=== PATIENT | female | born 1960 | race Caucasian/White ===

== ENCOUNTER 2016-07-27 08:02 | Emergency (ER) | payer OTHER, MEDICARE ==
[~2016-07-27] VITALS: Ht 157.5 cm; Wt 52.2 kg
[~2016-07-27 08:02] MED LIST: AUGMENTIN 875 M1 TAB PO; BACTRIM DS 8001 TAB PO; BENTYL10 MG PO; BENTYL20 MG PO; CARAFATE1 GM/10 ML PO; CIPRO 500MG TA500 MG PO; CLONAZEPAM0.5 MG PO; CLONAZEPAM1 MG PO; CLONAZEPAM2 MG PO; CYCLOBENZAPRINE10 MG PO; DICLOFENAC SODI75 M2 PO; FLUOXETINE HCL20 M2 PO; FOLIC ACID 1 MG PO; LEVOTHYROXIN0.088 M1 PO; LEVOTHYROXIN0.125 MG PO; LEVOTHYROXINE0.1 MG PO; NAPROSYN500 M1 PO; NITROFURANTOIN50 MG PO; NORCO 325 MG-51 TAB PO; NORCO 325 MG-7.1 TAB PO; OMEPRAZOLE40 MG PO; PERCOCET 325 MG1 TA2 PO; QUETIAPINE FUM200 MG PO; QUETIAPINE FUM300 MG PO; QUETIAPINE FUM400 MG PO; SIMVASTATIN20 MG PO; VICODIN ES 7.51 EACH PO; ZOFRAN4 M1 PO; ZOFRAN4 M1 SL; ZOLPIDEM TART10 MG PO
--- NOTE | 2016-07-27 08:40 | ED GI/GU/ABDOMINAL COMPLAINT ---
History of Present Illness General Chief Complaint: General Adult Stated Complaint: MULTI COMPLAINTS Source: patient, old records Exam Limitations: no limitations Vital Signs & Intake/Output Vital Signs & Intake/Output Vital Signs Date Time Temp Pulse Resp B/P Pulse O2 O2 Flow FiO2 Ox Delivery Rate 07/27 1030 97.5 84 18 120/80 97 Room Air Room Air 07/27 0816 97.7 95 20 121/79 98 Room Air Room Air Allergies Coded Allergies: No Known Allergies (08/17/15) Reconcile Medications Ciprofloxacin HCl (Cipro) 500 MG TABLET 1 TAB PO BID UTI Clonazepam 2 MG TABLET 2 TAB PO QPM SLEEP (Reported) Clonazepam 1 MG TABLET 1 TAB PO DAILY PRN ANXIETY (Reported) CYCLOBENZAPRINE HCL (Cyclobenzaprine HCl) 10 MG TAB 1 TAB PO BID MUSCLE SPASMS (Reported) Diclofenac Sodium 75 MG TABLET.DR 1 TAB PO BID PRN PAIN Fluoxetine HCl 20 MG CAPSULE 3 CAP PO DAILY MENTAL HEALTH (Reported) Folic Acid 1 MG TABLET 1 TAB PO DAILY FOLIC ACID SUPPLEMENT (Reported) Hydrocodone/Acetaminophen (Vicodin Es 7.5-300 MG Tablet) 7.5 MG-300 MG TABLET 1 TAB PO TID PAIN (Reported) Ibuprofen 600 MG TABLET 1 TAB PO TID PRN PAIN with food Levothyroxine Sodium 0.125 MG TAB 1 TAB PO DAILY AC THYROID (Reported) Omeprazole 40 MG CAPSULE.DR 1 CAP PO DAILY ULCER (Reported) Quetiapine Fumarate 300 MG TAB 2 TAB PO QHS DEPRESSION (Reported) Simvastatin (Zocor) 20 MG TAB 1 TAB PO QPM CHOLESTEROL (Reported) Zolpidem Tartrate 10 MG TABLET 2 TAB PO QPM SLEEP (Reported) Triage Note: PT TO ED WITH MULTIPLE COMPLAINTS, ABD PAIN "I HAVE PANCREATITIS, I'M SUPPOSED TO BE ON CREON, NOT TAKING IT YET". "I THINK I HAVE A UTI". "NOT TAKING IN FLUIDS WELL". Triage Nurses Notes Reviewed? yes ? N Is pt currently ? No Onset: Gradual Duration: constant Timing: recent history Quality/Severity: moderate Severity Numbers: 5 Location: generalized abdomen Radiation: no radiation Activities at Onset: none HPI: Patient is a 55-year-old female with a past medical history of COPD, former smoker, hypothyroidism, chronic back pain/arthritis, depression/anxiety, splenic aneurysm, celiac disease, status post laparoscopic appendectomy (ruptured) in 2014, and a long-standing history of "stomach" issues who presents emergency room with a chronic history of intermittent waxing and waning abdominal discomfort in the last week symptoms have worsened localized pain to the epigastric region with radiation to her back. Patient states that she has chronic pancreatitis with unknown etiology. Patient also states that she has a urethral stenosis where she gets chronic UTIs and complains of dysuria and frequency urine changes. Patient is able tolerate by mouth however decreased by mouth intake. Patient states that she was advised by her business services tech to begin Creon however patient is noncompliant with this medication. Denies any fevers but does have chills. Denies any chest pain are pain jaw pain vaginal bleeding or discharge. Last bowel movement was within last 24 hours no blood no melena noted. (SANDRINE VALENTE) Past History Travel History Traveled to [place] past 21 day No Medical History Any Pertinent Medical History? 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 FH: heart disease MOTHER FH: heart disease FATHER FH: heart disease DAUGHTER FH: arrhythmia Hx Contributory? No (SANDRINE VALENTE) Review of Systems Review of Systems Constitutional: Reports: see HPI. EENTM: Reports: no symptoms. Respiratory: Reports: no symptoms. Cardiovascular: Reports: no symptoms. GI: Reports: see HPI, abdominal pain. Genitourinary: Reports: see HPI. Musculoskeletal: Reports: no symptoms. Skin: Reports: no symptoms. Neurological/Psychological: Reports: no symptoms. Hematologic/Endocrine: Reports: no symptoms. Immunologic/Allergic: Reports: no symptoms. All Other Systems: Reviewed and Negative (SANDRINE VALENTE) Physical Exam Physical Exam General Appearance: no apparent distress, alert, comfortable Gastrointestinal: normal bowel sounds, soft, MILD EPIGASTRIC POINT TENDERNESS NOTED, NO RIGHT LOWER QUADRANT PAIN NO REBOUND TENDERNESS NO RIGHT UPPER QUADRANT PAIN NO PERITONEAL SIGNS Comments: Well-developed well-nourished person in no acute distress HEENT: Normal EENT exam Neck: Supple, no lymphadenopathy, normal range of motion without pain or tenderness Back: Nontender, no CVA tenderness. Cardiovascular: Regular rate and rhythms no murmurs rubs or gallops, normal JVP Respiratory: Chest nontender. No respiratory distress.breath sounds clear to auscultation bilaterally Extremity: No edema, no calf tenderness to palpation, normal and equal pulses. Neuro: Alert oriented x3, motor sensory normal, Skin: No appreciable rash on exposed skin, skin is warm and dry. Psych: Mood and affect is normal, memory and judgment is normal. Core Measures ACS in differential dx? No Severe Sepsis Present: No Septic Shock Present: No (SANDRINE VALENTE) Progress Differential Diagnosis: AAA, AMI, biliary colic, bowel obstruction, colon cancer , cholecystitis, diverticulitis, ectopic , endometritis, esophageal varices, gastritis, hepatitis, hernia, hemorrhoids, ischemic bowel, inflamm bowel dis, intrauterine , kidney stone, Stefania-Allen tear, ovarian cyst , ovarian torsion, pancreatitis, PID/cervicitis, peptic ulcer, PUD/GERD, perforated viscous, SBO, threatened AB, UTI/pyelo Plan of Care: Orders Procedure Date/time Status Add-on Test (ER Only) 07/27 1015 Active LIPASE 07/27 0831 Complete COMPREHENSIVE METABOLIC PANEL 07/27 0831 Complete CBC WITHOUT DIFFERENTIAL 07/27 0831 Complete AMYLASE 07/27 0831 Complete CULTURE,URINE 07/27 0818 Active URINALYSIS 07/27 0818 Complete Laboratory Tests 07/27/16 0948: Urine Color YEL, Urine Clarity HAZY H, Urine pH 7.0, Ur Specific Girard 1.020, Urine Protein NEG, Urine Ketones NEG, Urine Nitrite POS H, Urine Bilirubin NEG, Urine Urobilinogen 0.2, Ur Leukocyte Esterase SMALL H, Ur Microscopic SEDIMENT EXAMINED, Urine RBC 1-3, Urine WBC 25-50 H, Hyaline Casts 5-10 H, Urine Mucus FEW, Urine Hemoglobin NEG, Urine Glucose NEG 07/27/16 0902: Anion Gap 12, Estimated GFR > 60, BUN/Creatinine Ratio 20.0, Glucose 84, Calcium 8.4, Total Bilirubin 0.3, AST 39 H, ALT 40, Alkaline Phosphatase 125, Total Protein 5.4 L, Albumin 2.9 L, Globulin 2.5, Albumin/Globulin Ratio 1.2, Amylase 44, Lipase 245, CBC w Diff NO MAN DIFF REQ, RBC 3.32 L, MCV 97.9, MCH 32.7 H, RDW 13.5, MPV 7.4, Gran % 64.8, Lymphocytes % 21.9, Monocytes % 10.2 H , Eosinophils % 2.3, Basophils % 0.8, Absolute Granulocytes 3.4, Absolute Lymphocytes 1.1 L, Absolute Monocytes 0.5, Absolute Eosinophils 0.1, Absolute Basophils 0, PUBS MCHC 33.4 Microbiology 07/27 0818 URINE ROUT: Urine Culture - RECD Patient currently is in no apparent distress and actively drinking water Patient had unremarkable blood work and urinalysis noted UTI culture currently is pending patient will be placed with ciprofloxacin. Patient was strongly advised to follow up as directed and discharge instructions that she will comply. (SANDRINE VALENTE) Initial ED EKG: none (SANDRINE VALNETE) Departure Departure Disposition: HOME OR SELF CARE Condition: Stable Clinical Impression Primary Impression: UTI (urinary tract infection) Secondary Impressions: Abdominal pain Referrals: Mukul CARBONE MD (PCP/Family) Additional Instructions: As discussed begin a 24-hour clear liquid and bland diet to rest her bowels and begin drinking plenty of water for hydration. Begin the prescription Motrin for pain and a prescription of ciprofloxacin as directed for the full course. If symptoms worsen return to emergency room. Follow-up with your primary care doctor in 7 days for recheck of urinalysis and follow-up with a business services tech in 3 days if no better. Begin taking her home medications prescribed to as directed. Prescription is waiting at [facility] pharmacy Departure Forms: Customer Survey General Discharge Information Prescriptions: Current Visit Scripts Ciprofloxacin HCl (Cipro) 1 TAB PO BID #20 TAB Ibuprofen 1 TAB PO TID PRN PAIN #20 TAB with food (SANDRINE VALENTE) PA/ASSISTANT Co-Sign Statement Statement: ED Attending supervision documentation- [] I saw and evaluated the patient. I have also reviewed all the pertinent lab results and diagnostic results. I agree with the findings and the plan of care as documented in the PA's/ASSISTANT's documentation. [x] I have reviewed the ED Record and agree with the PA's/ASSISTANT's documentation. [] Additions or exceptions (if any) to the PAs/ASSISTANT's note and plan are summarized below: [] (MONIQUE GENAO DO
[2016-07-27 09:10] LABS: ABSOLUTE BASOPHIL COUNT 0 /CUMM (0.0-0.2); ABSOLUTE EOSINOPHIL COUNT 0.1 /CUMM (0.0-0.7); ABSOLUTE GRANULOCYTE CT 3.4 /CUMM (1.4-6.5); ABSOLUTE LYMPH COUNT 1.1 /CUMM (1.2-3.4); ABSOLUTE MONOCYTE COUNT 0.5 /CUMM (0.10-0.60); BASOPHIL % 0.8 % (0.0-2.0); EOSINOPHIL % 2.3 % (0-5); GRANULOCYTE % 64.8 % (42.2-75.2); HEMATOCRIT 32.5 % (37-47); MEAN CORPUSCULAR HGB 32.7 PG (27.0-31.0); MEAN CORPUSCULAR HGB CONC 33.4 G/DL (33.0-37.0); MEAN CORPUSCULAR VOLUME 97.9 FL (81.0-99.0); MEAN PLATELET VOLUME 7.4 FL (7.4-10.4); PLATELET COUNT 290 /CUMM (130-400); RBC DISTRIBUTION WIDTH 13.5 % (11.5-14.5); RED BLOOD CELL CT 3.32 /CUMM (4.20-5.40); WHITE BLOOD CELL COUNT 5.2 /CUMM (4.8-10.8)
[2016-07-27] MEDS ORDERED: CIPRO500 M1 PO (10:19)
[2016-07-27] MEDS ORDERED: IBUPROFEN600 M1 PO (10:19)
[2016-07-27 10:30] VITALS: BP 120/80
== END 2016-07-27 10:32 ==
LOC: ERH 08:02
PROVIDERS: Physician Assistant
DX: N39.0 Urinary tract infection, site not specified (principal)
CPT/HCPCS: 81001; 87086; 87147

== ENCOUNTER 2016-09-02 17:20 | Emergency (ER) | payer OTHER, MEDICARE ==
[~2016-09-02] VITALS: Ht 157.5 cm; Wt 53.5 kg
[~2016-09-02 17:20] MED LIST changes: +CIPRO500 M1 PO; +IBUPROFEN600 M1 PO
[2016-09-02 17:30] VITALS: BP 114/67
[2016-09-02] MEDS ORDERED: DELTASONE20 MG PO (19:00)
[2016-09-02] MEDS ORDERED: BROMFED DM COU118 M1 PO (19:00)
[2016-09-02] MEDS ORDERED: PROVENTIL HFA6.7 GM INH (19:00)
[2016-09-02] MEDS ORDERED: DOXYCYCLINE HY100 M4 PO (19:00)
--- NOTE | 2016-09-02 19:01 | ED DYSPNEA/ASTHMA COMPLAINT ---
History of Present Illness General Chief Complaint: General Adult Stated Complaint: PT HAVING WATERS,COUGHING ,CHEST PAIN ,STUFFY NOSE Source: patient Exam Limitations: no limitations Vital Signs & Intake/Output Vital Signs & Intake/Output Vital Signs Date Time Temp Pulse Resp B/P Pulse O2 O2 Flow FiO2 Ox Delivery Rate 09/02 1730 97.4 100 16 114/67 95 Room Air Allergies Coded Allergies: No Known Allergies (08/17/15) Reconcile Medications Albuterol Sulfate (Proventil Hfa) 90 MCG HFA.AER.AD 2 PUF INH Q4 SOB Brompheniramine/Pseudoephed/Dm (Bromfed Dm Cough Syrup) 2 MG-30 MG-10 MG/5 ML SYRUP 5-10 ML PO Q4-6 PRN PRN COUGH Ciprofloxacin HCl (Cipro) 500 MG TABLET 1 TAB PO BID UTI Clonazepam 2 MG TABLET 2 TAB PO QPM SLEEP (Reported) Clonazepam 1 MG TABLET 1 TAB PO DAILY PRN ANXIETY (Reported) CYCLOBENZAPRINE HCL (Cyclobenzaprine HCl) 10 MG TAB 1 TAB PO BID MUSCLE SPASMS (Reported) Diclofenac Sodium 75 MG TABLET.DR 1 TAB PO BID PRN PAIN Doxycycline Hyclate 100 MG TABLET 1 TAB PO AD BRONCHITIS 2 TABS BID DAYS 1-3 1 TAB BID DAYS 4-6 Fluoxetine HCl 20 MG CAPSULE 3 CAP PO DAILY MENTAL HEALTH (Reported) Folic Acid 1 MG TABLET 1 TAB PO DAILY FOLIC ACID SUPPLEMENT (Reported) Hydrocodone/Acetaminophen (Vicodin Es 7.5-300 MG Tablet) 7.5 MG-300 MG TABLET 1 TAB PO TID PAIN (Reported) Ibuprofen 600 MG TABLET 1 TAB PO TID PRN PAIN with food Levothyroxine Sodium 0.125 MG TAB 1 TAB PO DAILY AC THYROID (Reported) Omeprazole 40 MG CAPSULE.DR 1 CAP PO DAILY ULCER (Reported) Prednisone (Deltasone) 20 MG TABLET 1 TAB PO BID BRONCHITIS Quetiapine Fumarate 300 MG TAB 2 TAB PO QHS DEPRESSION (Reported) Simvastatin (Zocor) 20 MG TAB 1 TAB PO QPM CHOLESTEROL (Reported) Zolpidem Tartrate 10 MG TABLET 2 TAB PO QPM SLEEP (Reported) Triage Note: PT STATES SHE IS FEELING CONGESTED PAIN IN HER LUNGS AND LOOSING HER VOICE. PT STATES SHE IS FEELING LIGHTHEADED AND SHE HAS BEEN RUNNING A FEVER ON AND OFF. Triage Nurses Notes Reviewed? yes Onset: Abrupt Duration: day(s):, constant Timing: recent history HPI: 56-year-old female comes into emergency room with runny nose, cough, congestion, mucus production, shortness of breath, fever chills body aches. Symptoms going on for the past few days. Denies any chest pain. History of COPD. Nothing seems to make the symptoms better. Patient has not tried any [id number] medications. Denies any other associated symptoms at this time. (JOSH PÉREZ) Past History Travel History Traveled to [place] past 21 day No Medical History Any Pertinent Medical History? 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 FH: heart disease MOTHER FH: heart disease FATHER FH: heart disease DAUGHTER FH: arrhythmia Hx Contributory? No (JOSH PÉREZ) Review of Systems Review of Systems Constitutional: Reports: see HPI. EENTM: Reports: see HPI. Respiratory: Reports: see HPI. Cardiovascular: Reports: no symptoms. GI: Reports: no symptoms. Genitourinary: Reports: no symptoms. Musculoskeletal: Reports: no symptoms. Skin: Reports: no symptoms. Neurological/Psychological: Reports: no symptoms. Hematologic/Endocrine: Reports: no symptoms. Immunologic/Allergic: Reports: no symptoms. All Other Systems: Reviewed and Negative (JOSH PÉREZ) Physical Exam Physical Exam General Appearance: well developed/nourished, no apparent distress, alert, awake Head: atraumatic, normal appearance Eyes: Bilateral: normal appearance, EOMI. Ears, Nose, Throat: normal pharynx, normal ENT inspection, hearing grossly normal, sinus pain/drainage, nasal congestion Neck: normal inspection, full range of motion Respiratory: no respiratory distress, wheezing (mild) Cardiovascular: regular rate/rhythm Extremities: normal inspection, normal range of motion Neurologic/Psych: awake, alert, oriented x 3, normal gait, normal mood/affect Skin: intact, normal color Core Measures ACS in differential dx? No Severe Sepsis Present: No Septic Shock Present: No (JOSH PÉREZ) Progress Differential Diagnosis: asthma, AMI, bronchitis, costochondritis, CHF, COPD, musculoskeletal pain, pericarditis, pulmonary embolism, pneumonia, pneumothorax, rib fracture, unstable angina Plan of Care: 09/02/2016 8:31:12 PM Symptoms are most consistent with bronchitis. Patient declined chest x-ray and further evaluation with blood work and possibly EKG. At this time patient be treated symptomatically as outpatient with oral medications. Follow-up with primary care doctor. Return if any other concerns worsening symptoms. Symptoms go along with viral illness anyways and therefore I do not feel that a full workup is needed at this time. Patient just wants to go home and be started on oral meds. Initial ED EKG: none (JOSH PÉREZ) Departure Departure Disposition: HOME OR SELF CARE Condition: Stable Clinical Impression Primary Impression: Bronchitis Referrals: Mukul CARBONE MD (PCP/Family) Additional Instructions: Take doxycycline, prednisone, albuterol, and Bromfed as prescribed. Follow-up with your primary care doctor. Return if any concerns worsening symptoms. Please go over all results of today's visit with your primary care doctor. Contact your primary care doctor to let them know you were here in the emergency room. There may be nonspecific findings which may not be related to your visit today here in the emergency room but may require further evaluation and chronic monitoring by your primary care doctor. If you had a laceration today the chance of foreign body always remains. You should follow-up with your primary care doctor for recheck in 3-5 days for a wound check. If you had an x-ray done there is a chance that a fracture could have been missed on initial read and you should follow-up with your primary care doctor for repeat x-rays if symptoms persist. If your blood pressure was elevated here in the emergency room please have rechecked by her primary care doctor within the next 48 hours by your primary care doctor. If you were prescribed a narcotic here in the emergency room or any type of controlled substances you're not allowed to drive while taking this medication or operate any type of heavy machinery. Narcotics can make you feel lightheaded dizziness nausea and can cause constipation. 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 Thank you for choosing [facility] emergency room. Please return to the emergency room immediately if you have any other concerns worsening of symptoms. Departure Forms: Customer Survey General Discharge Information Prescriptions: Current Visit Scripts Doxycycline Hyclate 1 TAB PO AD #18 TAB 2 TABS BID DAYS 1-3 1 TAB BID DAYS 4-6 Prednisone (Deltasone) 1 TAB PO BID #10 MG Albuterol Sulfate (Proventil Hfa) 2 PUF INH Q4 #1 INHAL Brompheniramine/Pseudoephed/Dm (Bromfed Dm Cough Syrup) 5-10 ML PO Q4-6 PRN PRN COUGH #120 ML (JOSH PÉREZ) PA/EMERGENCY DEPARTMENT NURSE Co-Sign Statement Statement: ED Attending supervision documentation- [] I saw and evaluated the patient. I have also reviewed all the pertinent lab results and diagnostic results. I agree with the findings and the plan of care as documented in the PA's/EMERGENCY DEPARTMENT NURSE's documentation. [x I have reviewed the ED Record and agree with the PA's/EMERGENCY DEPARTMENT NURSE's documentation. [] Additions or exceptions (if any) to the PAs/EMERGENCY DEPARTMENT NURSE's note and plan are summarized below: [] (MONIQUE GENAO DO) Critical Care Note Critical Care Note Critical Care Time: non-applicable (JOSH PÉREZ)
== END 2016-09-02 19:10 ==
LOC: ERH 17:20
DX: J40 Bronchitis, not specified as acute or chronic (principal); Z87.891 Personal history of nicotine dependence

== ENCOUNTER 2016-10-25 18:22 | Emergency (ER) | payer OTHER, MEDICARE ==
[~2016-10-25] VITALS: Ht 157.5 cm; Wt 54.9 kg
[~2016-10-25 18:22] MED LIST changes: +BROMFED DM COU118 M1 PO; +DELTASONE20 MG PO; +DOXYCYCLINE HY100 M4 PO; +PROVENTIL HFA6.7 GM INH
[2016-10-25 19:42] LABS: ABSOLUTE BASOPHIL COUNT 0 /CUMM (0.0-0.2); ABSOLUTE EOSINOPHIL COUNT 0.1 /CUMM (0.0-0.7); ABSOLUTE GRANULOCYTE CT 6.9 /CUMM (1.4-6.5); ABSOLUTE LYMPH COUNT 2.3 /CUMM (1.2-3.4); ABSOLUTE MONOCYTE COUNT 0.8 /CUMM (0.10-0.60); BASOPHIL % 0.4 % (0.0-2.0); EOSINOPHIL % 0.9 % (0-5); GRANULOCYTE % 67.8 % (42.2-75.2); MEAN CORPUSCULAR HGB 31.6 PG (27.0-31.0); MEAN CORPUSCULAR HGB CONC 33.3 G/DL (33.0-37.0); MEAN PLATELET VOLUME 7.4 FL (7.4-10.4); PLATELET COUNT 402 /CUMM (130-400); RBC DISTRIBUTION WIDTH 13.9 % (11.5-14.5); RED BLOOD CELL CT 3.89 /CUMM (4.20-5.40); WHITE BLOOD CELL COUNT 10.1 /CUMM (4.8-10.8)
--- NOTE | 2016-10-25 20:05 | ED GENERAL ADULT ---
History of Present Illness General Chief Complaint: General Adult Stated Complaint: GEN WEAKNESS,UTI,DIZZY,ABDOMINAL PAIN Source: patient Exam Limitations: no limitations Vital Signs & Intake/Output Vital Signs & Intake/Output Vital Signs Date Time Temp Pulse Resp B/P B/P Pulse O2 O2 Flow FiO2 Mean Ox Delivery Rate 10/25 2038 97.8 81 18 117/58 97 Room Air 10/25 1830 97.0 103 16 119/58 94 Room Air ED Intake and Output 10/26 0000 10/25 1200 Intake Total Output Total Balance Patient 121 lb Weight Weight Reported by Patient Measurement Method Allergies Coded Allergies: No Known Allergies (08/17/15) Reconcile Medications Albuterol Sulfate (Proventil Hfa) 90 MCG HFA.AER.AD 2 PUF INH Q4 SOB Brompheniramine/Pseudoephed/Dm (Bromfed Dm Cough Syrup) 2 MG-30 MG-10 MG/5 ML SYRUP 5-10 ML PO Q4-6 PRN PRN COUGH Ciprofloxacin HCl (Cipro) 500 MG TABLET 1 TAB PO BID UTI Clonazepam 2 MG TABLET 2 TAB PO QPM SLEEP (Reported) Clonazepam 1 MG TABLET 1 TAB PO DAILY PRN ANXIETY (Reported) CYCLOBENZAPRINE HCL (Cyclobenzaprine HCl) 10 MG TAB 1 TAB PO BID MUSCLE SPASMS (Reported) Diclofenac Sodium 75 MG TABLET.DR 1 TAB PO BID PRN PAIN Doxycycline Hyclate 100 MG TABLET 1 TAB PO AD BRONCHITIS 2 TABS BID DAYS 1-3 1 TAB BID DAYS 4-6 Fluoxetine HCl 20 MG CAPSULE 3 CAP PO DAILY MENTAL HEALTH (Reported) Folic Acid 1 MG TABLET 1 TAB PO DAILY FOLIC ACID SUPPLEMENT (Reported) Hydrocodone/Acetaminophen (Vicodin Es 7.5-300 MG Tablet) 7.5 MG-300 MG TABLET 1 TAB PO TID PAIN (Reported) Ibuprofen 600 MG TABLET 1 TAB PO TID PRN PAIN with food Levothyroxine Sodium 0.125 MG TAB 1 TAB PO DAILY AC THYROID (Reported) Omeprazole 40 MG CAPSULE.DR 1 CAP PO DAILY ULCER (Reported) Prednisone (Deltasone) 20 MG TABLET 1 TAB PO BID BRONCHITIS Quetiapine Fumarate 300 MG TAB 2 TAB PO QHS DEPRESSION (Reported) Simvastatin (Zocor) 20 MG TAB 1 TAB PO QPM CHOLESTEROL (Reported) Zolpidem Tartrate 10 MG TABLET 2 TAB PO QPM SLEEP (Reported) Triage Note: PT STATES SHE HAS A UTI AND PANCREATITIS BOTH NOT BEING TREATED STATES THE MEDS AREN'T WORK. PT STATES HER SHAKES GET SO BAD SOMETIMES THAT SHE CAN'T TALK. PT STATES SHE HAS BEEN RUNNING A LOW GRADE TEMP. CALLED HER PCP AND WAS TOLD TO COME HERE. PT STATE SHE IS HAVING DIARRHEA ALSO. Triage Nurses Notes Reviewed? yes HPI: 56 y/p female with h/o migraines, HLD, diarrhea predominant IBS, recurrent UTI's , chronic back pain, hypothyroid, depression, OCD presenting with abd pain and diarrhea x1 month. Reports diffuse non-focal abd pain that will migrate to different regions at different times, but never fully resolves. No worsening or alleviating factors. Has chronic diarrhea and chronic dysuria at baseline. Reports intermittent subjective low grade fevers. Denies N/V or vaginal discharge. States that she has "chronic UTI and pancreatitis" but that her PMD refuses to tx her and referred her into the ED. (BILLY DICKEY,YVONNE) Past History Travel History Traveled to [place] past 21 day No Medical History Any Pertinent Medical History? 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 FH: heart disease MOTHER FH: heart disease FATHER FH: heart disease DAUGHTER FH: arrhythmia Hx Contributory? No (BILLY DICKEY,YVONNE) Review of Systems Review of Systems Constitutional: Reports: chills, fever, malaise, weakness. Respiratory: Denies: cough, short of breath, sputum production. Cardiovascular: Denies: chest pain. GI: Reports: abdominal pain, diarrhea. Denies: bloating, constipation, melena, nausea, bloody stool, vomiting. Genitourinary: Reports: dysuria. Denies: discharge, frequency, hematuria, urgency. Musculoskeletal: Denies: joint pain, muscle pain. Skin: Denies: rash. Neurological/Psychological: Denies: headache, numbness, paresthesia. (BILLY DICKEY,YVONNE) Physical Exam Physical Exam General Appearance: well developed/nourished, no apparent distress, alert, awake , comfortable Head: atraumatic Respiratory: normal breath sounds, lungs clear Cardiovascular: regular rate/rhythm Gastrointestinal: normal bowel sounds, soft, non-tender Back: No CVAT Skin: intact, warm/dry Core Measures ACS in differential dx? No CVA/TIA Diagnosis: No Severe Sepsis Present: No Septic Shock Present: No (BILLY DICKEY,YVONNE) Progress Differential Diagnoses I considered the following diagnoses in my evaluation of the patient: [ gastroenteritis vs acute on chronic IBS vs pancreatitis vs biliary colic vs colitis vs diverticulitis vs UTI vs pyelonephritis vs cervacitis vs PID] Plan of Care: Orders Procedure Date/time Status CULTURE,URINE 10/26 2011 Active URINALYSIS 10/26 1915 Complete LIPASE 10/26 1915 Complete COMPREHENSIVE METABOLIC PANEL 10/26 1915 Complete CBC WITHOUT DIFFERENTIAL 10/26 1915 Complete AMYLASE 10/26 1915 Complete Laboratory Tests 10/25/162100: Urine Color STRAW, Urine Clarity CLEAR, Urine pH 6.5, Ur Specific [place] <= 1.005, Urine Protein NEG, Urine Ketones NEG, Urine Nitrite NEG, Urine Bilirubin NEG, Urine Urobilinogen 0.2, Ur Leukocyte Esterase SMALL H, Ur Microscopic SEDIMENT EXAMINED, Urine RBC 1-3, Urine WBC 1-3 H, Ur Epithelial Cells FEW, Urine Bacteria FEW H, Urine Hemoglobin NEG, Urine Glucose NEG 10/25/161928: Anion Gap 11, Estimated GFR > 60, BUN/Creatinine Ratio 15.0, Glucose 92, Calcium 9.2, Total Bilirubin 0.4, AST 40 H, ALT 34, Alkaline Phosphatase 161 H, Total Protein 6.7, Albumin 3.7, Globulin 3.0, Albumin/Globulin Ratio 1.2, Amylase 78, Lipase 262, CBC w Diff NO MAN DIFF REQ, RBC 3.89 L, MCV 95.0, MCH 31.6 H, RDW 13.9, MPV 7.4, Gran % 67.8, Lymphocytes % 22.8, Monocytes % 8.1, Eosinophils % 0.9, Basophils % 0.4, Absolute Granulocytes 6.9 H, Absolute Lymphocytes 2.3, Absolute Monocytes 0.8 H, Absolute Eosinophils 0.1, Absolute Basophils 0, PUBS MCHC 33.3 Microbiology 10/251 URINE ROUT: Urine Culture - RES UA neg for urine infection and lipase WNL, remaindeer of labs unremarkable. Pt feeling somewhat better after IVF and zofran. Given the pt's benign abd exam, normal labs, and extended length of time with symptoms there is no indication for CT scan abd pelvis at this time. Will trial bentyl for symptomatic relief of diarrhea. Has appt to f/u with her GI provider. (YVONNE CERVANTES PA-C) Initial ED EKG: none (YVONNE CERVANTES PA-C) Departure Departure Disposition: HOME OR SELF CARE Condition: Stable Clinical Impression Primary Impression: Abdominal pain Referrals: RAF RAZO,Mukul JOSEPH (PCP/Family) Additional Instructions: Follow-up with in the next 24-48 hours. Return to the ED for any new or worsening symptoms. Departure Forms: Customer Survey General Discharge Information (YVONNE CERVANTES PA-C) PA/HAND TURNER Co-Sign Statement Statement: ED Attending supervision documentation- [] I saw and evaluated the patient. I have also reviewed all the pertinent lab results and diagnostic results. I agree with the findings and the plan of care as documented in the PA's/HAND TURNER's documentation. [x] I have reviewed the ED Record and agree with the PA's/HAND TURNER's documentation. [] Additions or exceptions (if any) to the PAs/HAND TURNER's note and plan are summarized below: [] (MONIQUE GENAO DO) Critical Care Note Critical Care Note Critical Care Time: non-applicable (YVONNE CERVANTES PA-C)
[2016-10-25 20:39] VITALS: BP 117/58
== END 2016-10-25 22:14 ==
LOC: ERH 18:22
PROVIDERS: Physician Assistant Medical
DX: R10.9 Unspecified abdominal pain (principal); R42 Dizziness and giddiness
CPT/HCPCS: 81001; 87086; 96361; 96374; J2405

== ENCOUNTER 2018-01-20 17:53 | Emergency (ER) | payer OTHER, MEDICARE ==
[~2018-01-20 17:53] MED LIST changes: +CLONAZEPAM1 M2 PO; +CYCLOBENZAPRINE10 M1 PO; +ELMIRON100 M1 PO; +FISH OIL 1,2001 EAC2 PO; +FLUOXETINE HCL40 M1 PO; +FOLIC ACID1 M1 PO; +HYDROCODON-ACE1 EAC3 PO; +LEVOTHYROXINE112 MCG PO; +OMEPRAZOLE40 M1 PO; +QUETIAPINE FUM300 M1 PO; +SIMVASTATIN20 M2 PO; +TRAMADOL HCL50 M1 PO; +VITAMIN D1000 UNIT PO; +ZOLPIDEM TARTRA10 M1 PO
--- NOTE | 2018-01-20 18:58 | CT SCAN REPORT ---
EXAMINATION: CT HEAD WITHOUT CONTRAST CLINICAL INFORMATION: Fall. Shaking. COMPARISON: None TECHNIQUE: Contiguous axial imaging was performed from the skull base to vertex without intravenous administration of contrast. DLP: 600.5 mGy-cm FINDINGS: There is no evidence of acute intracranial hemorrhage or territorial infarction. No abnormal mass effect or midline shift is seen. [place] to white matter differentiation is well preserved. No extra-axial fluid collections are identified. Moderate generalized parenchymal volume loss for patient. The ventricles are normal in size. There is no abnormal attenuation within the brain parenchyma. The osseous structures and soft tissues are normal. The mastoid air cells and visualized portions of the paranasal sinuses are well aerated. IMPRESSION: No acute intracranial pathology. Moderate generalized parenchymal volume loss.
[2018-01-20 19:04] LABS: ABSOLUTE BASOPHIL COUNT 0.1 /CUMM (0.0-0.2); ABSOLUTE EOSINOPHIL COUNT 0.1 /CUMM (0.0-0.7); ABSOLUTE GRANULOCYTE CT 7.5 /CUMM (1.4-6.5); ABSOLUTE LYMPH COUNT 1.9 /CUMM (1.2-3.4); BASOPHIL % 0.5 % (0.0-2.0); EOSINOPHIL % 0.5 % (0-5); GRANULOCYTE % 71.1 % (42.2-75.2); MEAN CORPUSCULAR HGB 31.6 PG (27.0-31.0); MEAN CORPUSCULAR HGB CONC 33.7 G/DL (33.0-37.0); MEAN CORPUSCULAR VOLUME 93.7 FL (81.0-99.0); MEAN PLATELET VOLUME 8.5 FL (7.4-10.4); PLATELET COUNT 314 /CUMM (130-400); RBC DISTRIBUTION WIDTH 20.5 % (11.5-14.5); RED BLOOD CELL CT 4.16 /CUMM (4.20-5.40); WHITE BLOOD CELL COUNT 10.5 /CUMM (4.8-10.8)
--- NOTE | 2018-01-20 20:15 | ED GENERAL ADULT ---
History of Present Illness General Chief Complaint: General Adult Stated Complaint: SHAKINESS/FALL/RIB PAIN Source: patient Exam Limitations: no limitations Vital Signs & Intake/Output Vital Signs & Intake/Output Vital Signs Date Time Temp Pulse Resp B/P B/P Pulse O2 O2 Flow FiO2 Mean Ox Delivery Rate 01/20 2100 73 18 136/75 100 Room Air 01/20 1932 Room Air 01/20 1802 97.6 103 22 107/75 98 Allergies Coded Allergies: No Known Allergies (01/12/17) Reconcile Medications Cholecalciferol (Vitamin D3) (Vitamin D) 1,000 UNIT TABLET 1 TAB PO DAILY SUPPLEMENT (Reported) Clonazepam 1 MG TABLET 1 TAB PO BID ANXIETY (Reported) Fluoxetine HCl 40 MG CAPSULE 2 CAP PO DAILY MENTAL HEALTH (Reported) Folic Acid 1 MG TABLET 1 TAB PO DAILY SUPPLEMENT (Reported) Levothyroxine Sodium 112 MCG TABLET 1 TAB PO DAILY AC THYROID (Reported) [place]-3S/Dha/Epa/Fish Oil (Fish Oil 1,200 MG Softgel) 360-1,200MG CAPSULE 1 CAP PO DAILY SUPPLEMENT (Reported) Omeprazole 40 MG CAPSULE.DR 1 CAP PO BID GI (Reported) Quetiapine Fumarate 300 MG TABLET 1 TAB PO QPM MENTAL HEALTH (Reported) Simvastatin (Simvastatin*) 20 MG TABLET 1 TAB PO QPM CHOLESTEROL (Reported) Zolpidem Tartrate 10 MG TABLET 2 TAB PO QPM SLEEP (Reported) Triage Note: PER PT FALLING 2NDARY TO SHAKINESS EVERYDAY X 7 MONTHS, HAS A CONSULT WITH DR. CHEUNG FOR SAME BUT NOT UNTIL MARCH. PER PT FALLING ALOT BECAUSE OF SHAKES. Triage Nurses Notes Reviewed? yes Onset: Gradual Duration: months Timing: intermittent HPI: 57 y/o female with a h/o migraines, asthma, COPD, HLD, chronic back pain, OA, recurrent UTIS 2/2 urethral stricture, hypothyroid, PE presenting with intermittent full body tremors/shakiness and unsteady gait over the past 7 months. Reports she has had gradually worsening shakiness and gradually worsening sensation of feeling unsteady when walking. This had lead to multiple mechanical falls at home. With the most recent fall this morning, reports she was in the bathroom and lost her balance, fell and struck her head. Denies loss of consciousness. Currently lives with her who works during the day, so she is home alone during the day. She has been evaluated in the ER for the same multiple times over the past few months with unclear etiology. Has an appt with Dr. Cheung from neuro in March, but presents to the ED for repeat eval because she feels as though her symptoms are worserning and becoming more frequent. Denies WATERS, visual changes, extremity weakness/numbness/paresthesias. (Suzi Rodriguez) Past History Travel History Traveled to [place] past 21 day No Medical History Any Pertinent Medical History? 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 FH: heart disease MOTHER FH: heart disease FATHER FH: heart disease DAUGHTER FH: arrhythmia Hx Contributory? No (Suzi Rodriguez) Review of Systems Review of Systems Constitutional: Reports: no symptoms. EENTM: Reports: no symptoms. Respiratory: Reports: no symptoms. Cardiovascular: Reports: no symptoms. GI: Reports: no symptoms. Genitourinary: Reports: no symptoms. Musculoskeletal: Reports: no symptoms. Skin: Reports: no symptoms. Neurological/Psychological: Reports: see HPI. Hematologic/Endocrine: Reports: no symptoms. Immunologic/Allergic: Reports: no symptoms. All Other Systems: Reviewed and Negative (Suzi Rodriguez) Physical Exam Physical Exam General Appearance: well developed/nourished, no apparent distress, alert, awake , comfortable Comments: Gen.: Well-nourished, well-developed, no acute distress. Head: Normocephalic, atraumatic. Eyes: Normal inspection bilaterally Ears: Normal inspection bilaterally Nose: Normal inspection Neck: Normal inspection Lungs: clear to auscultation bilaterally, normnal breath sounds Heart: regular rate and rhythm Abdomen: soft and non-tender Extremities: Normal inspection, no visualized tremors Neurologic: alert and oriented x3, cranial nerves II through XII intact, sensation intact, motor strength 5 out of 5, reflexes 2+, cerebellar function intact with normal finger to nose and heel to lopez exams, steady gait with ambulation Skin: warm and dry Psychiatric: Normal mood and affect, no apparent delusions or hallucinations, behavior appropriate Core Measures ACS in differential dx? No CVA/TIA Diagnosis: No Sepsis Present: No Sepsis Focused Exam Completed? No (Ramez SANTIAGO,Suzi) Progress Differential Diagnoses I considered the following diagnoses in my evaluation of the patient: [Infection versus metabolic derangement versus MS versus Parkinson's versus deconditioning] Plan of Care: Orders Procedure Date/time Status Add-on Test (ER Only) 01/20 220 Active MAGNESIUM 01/20 1855 Active URINALYSIS 01/21 1808 Complete COMPREHENSIVE METABOLIC PANEL 01/21 1808 Active CBC WITHOUT DIFFERENTIAL 01/21 1808 Complete Laboratory Tests 01/20/18 1900: Urinalysis LIGHT H, Urine Color YEL, Urine Clarity HAZY H, Urine pH 7.0, Ur Specific [place] <= 1.005, Urine Protein NEG, Urine Ketones NEG, Urine Nitrite NEG, Urine Bilirubin NEG, Urine Urobilinogen 0.2, Ur Leukocyte Esterase LARGE H , Ur Microscopic SEDIMENT EXAMINED, Urine RBC 1-3, Urine WBC 25-50 H, Ur Epithelial Cells FEW, Urine Bacteria FEW H, Urine Hemoglobin TRACE-INTACT, Urine Glucose NEG 01/20/181854: Anion Gap 11, Estimated GFR > 60, BUN/Creatinine Ratio 13.8, Glucose 88, Calcium 9.4, Magnesium Pending, Total Bilirubin 0.5, AST 66 H, ALT 51, Alkaline Phosphatase 122, Total Protein 7.3, Albumin 4.1, Globulin 3.2, Albumin/Globulin Ratio 1.3, CBC w Diff NO MAN DIFF REQ, RBC 4.16 L, MCV 93.7, MCH 31.6 H, MCHC 33.7, RDW 20.5 H, MPV 8.5, Gran % 71.1, Lymphocytes % 18.1 L, Monocytes % 9.8 H, Eosinophils % 0.5, Basophils % 0.5, Absolute Granulocytes 7.5 H, Absolute Lymphocytes 1.9, Absolute Monocytes 1.0 H, Absolute Eosinophils 0.1, Absolute Basophils 0.1 CXR IMPRESSION: No acute pulmonary findings. No acute fractures in the right hemithorax. Multiple old healed right rib fractures are unchanged. CT head IMPRESSION: No acute intracranial pathology. Moderate generalized parenchymal volume loss. Labs unremarkable Urine suspicious for UTI, patient was just started on antibiotics yesterday for urine infection, instructed to continue her antibiotics as prescribed. Given that the patient has had multiple ED visits for the same complaint she was seen and evaluated by the ED attending. Per the attending we will begin Benadryl to see if this helps with some of her symptoms. She will follow-up with neurology in March as planned. And given strict return precautions. Initial ED EKG: none (Suzi Rodriguez) Departure Departure Disposition: HOME OR SELF CARE Condition: Stable Clinical Impression Primary Impression: Tremor Secondary Impressions: Falls Referrals: Joshua RAZO,Mychal Carbajal (PCP/Family) Additional Instructions: Begin using Benadryl to see if this helps with your symptoms. Follow-up with neurology as scheduled in March. Follow-up with your primary care provider for reevaluation in the next 2-3 days. Return to the emergency department for any new or worsening symptoms. Departure Forms: Customer Survey General Discharge Information (Suzi Rodriguez) PA/DATA DELIVERABLES MANAGER Co-Sign Statement Statement: ED Attending supervision documentation- [] I saw and evaluated the patient. I have also reviewed all the pertinent lab results and diagnostic results. I agree with the findings and the plan of care as documented in the PA's/DATA DELIVERABLES MANAGER's documentation. [X] I have reviewed the ED Record and agree with the PA's/DATA DELIVERABLES MANAGER's documentation. [] Additions or exceptions (if any) to the PAs/DATA DELIVERABLES MANAGER's note and plan are summarized below: [] (Braak Mart DO) Critical Care Note Critical Care Note Critical Care Time: non-applicable (Suzi Rodriguez)
[2018-01-20 21:00] VITALS: BP 136/75
--- NOTE | 2018-01-20 21:07 | RADIOLOGY REPORT ---
EXAMINATION: XR CHEST, 2 VIEWS XR RIBS, RIGHT CLINICAL INFORMATION: Pain status post fall. COMPARISON: 02/25/2017 TECHNIQUE: PA and lateral views of the chest and AP and both oblique views of the right ribs FINDINGS: Lungs are clear. No consolidation, pneumothorax, or pleural effusion. The cardiomediastinal silhouette and pulmonary vasculature are normal. There is an old, healed angulated fracture of the left midclavicle. Thoracic spine appears relatively well-preserved. Old healed fractures are present at the right fourth, fifth, and sixth ribs anterolaterally. No acute fractures are identified. ACDF plate and screw fixation construct is present within the cervical spine. IMPRESSION: No acute pulmonary findings. No acute fractures in the right hemithorax. Multiple old healed right rib fractures are unchanged.
== END 2018-01-20 22:18 ==
LOC: ERH 17:53
PROVIDERS: Emergency Medicine
DX: R25.1 Tremor, unspecified (principal)
CPT/HCPCS: 71046; 71100-RT; 81001; J3370